=== PATIENT | female | born 1985 | race Caucasian/White ===

== ENCOUNTER → 2020-03-13 | Outpatient (CLI) | payer OTHER ==
--- NOTE | 2020-03-13 16:57 | RAD ---
US ABDOMEN COMPLETE: 03/13/2020 10:41 AM Indication: 34 years old Female. Abdominal pain Comparison: None. TECHNIQUE: Sonographic evaluation of the abdomen is performed utilizing grayscale and color Doppler. FINDINGS: Liver: Homogenous normal echotexture.. There is hepatopedal flow within the portal venous system. Rig ht hepatic lobe measures 16.5 cm. Biliary system: CBD measures 3 mm. There is no intrahepatic or extrahepatic biliary dilatation. Gallbladder: No stones, wall thickening or pericholecystic fluid. . Sonographic Mejía sign: Negative Pancreas: Visualized head and uncinate process are unremarkable. Body and tail are not visualized. Spleen: 11.3 cm. Right kidney: 10.4 x 5.4 x 4.4 cm. No hydronephrosis. Normal echotexture without focal mass or renal calculus. Left kidney: 10.0 x 4.8 x 5.6 cm. No hydronephrosis. Normal echotexture without focal mass or renal c alculus. Abdominal aorta and IVC: Visualized portions unremarkable. Free fluid:None. IMPRESSION: No cholelithiasis or sonographic evidence for acute cholecystitis. Electronically signed by: Michelle Aguilera MD (03/13/2020 4:55 PM) [id number]
== END ==
LOC: US 10:34
PROVIDERS: ATTEND Family Medicine
DX: R10.9 Unspecified abdominal pain (principal)
CPT/HCPCS: 76700